=== PATIENT | female | born 1980 | race Caucasian/White ===

== ENCOUNTER → 2020-03-24 07:49 | Outpatient (CLI) | payer OTHER, SELFPAY ==
--- NOTE | ~2020-03-24 | MMUS_ITS ---
EXAMINATION: MM diagnostic mario BI w carlyn, US breast LT limited HISTORY: Palpable left breast lump TECHNIQUE: Additional 3-D tomosynthesis images of the left breast were performed and synthetic 2-D im ages were generated. CAD analysis was submitted and interpreted. High resolution left breast ultrasou nd was performed. COMPARISON: None BREAST PARENCHYMAL COMPOSITION: The breasts are heterogeneously dense, which may obscure small masses . FINDINGS: MAMMOGRAPHIC FINDINGS: There are no suspicious masses, calcifications or architectural distortion in either breast to sugges t malignancy. ULTRASOUND: There is no evidence of focal abnormal solid or cystic lesion in the vicinity of the palpable left br east abnormality. IMPRESSION: 1. No mammographic or sonographic evidence for malignancy. 2. Routine yearly screening mammogram and regular clinical breast examination are recommended. BI-RADS Category 1: Negative Reviewed, dictated and finalized at location A. IMPRESSION: 1. No mammographic or sonographic evidence for malignancy. 2. Routine yearly screening mammogram and regular clinical breast examination a re recommended. BI-RADS Category 1: Negative
== END ==
DX: N63.20 Unspecified lump in the left breast, unspecified quadrant (principal)
CPT/HCPCS: 76642; 77062; 77066; G0279

== ENCOUNTER 2022-08-17 13:35 | Emergency (ER) | payer OTHER, SELFPAY ==
[2022-08-17 13:42] VITALS: BP 146/73; PULSE 72; RESP 16; TEMP 36.8; O2SAT 99
--- NOTE | 2022-08-17 13:43 | ED.URI ---
HPI - URI/Sore Throat General Chief Complaint: Upper Respiratory Infection Stated Complaint: sore throat Time Seen by Provider: 08/17/22 13:50 Source: patient, RN notes reviewed and old records reviewed Mode of arrival: ambulatory Limitations: no limitations History of Present Illness HPI Narrative: 42-year-old female presents to the [facility] with complaints of a sore throat since last night. Reports sinus drainage as well. Denies fevers. Has been as same symptoms. Related Data Home Medications Medication Instructions Recorded Confirmed folic acid 1 mg tablet 1 mg PO DAILY 08/17/22 08/17/22 hydroxychloroquine 200 mg tablet 200 mg PO DAILY 08/17/22 08/17/22 methotrexate sodium 2.5 mg tablet 12.5 mg PO WEEKLY 08/17/22 08/17/22 rosuvastatin 5 mg tablet 5 mg PO DAILY 08/17/22 08/17/22 Allergies Allergy/AdvReac Type Severity Reaction Status Date / Time No Known Allergies Allergy Verified 08/17/22 14:09 Review of Systems Review of Systems: All systems reviewed & are unremarkable except as noted in HPI and below Constitutional: Constitutional: Reports no additional constitutional complaints Eyes: Eyes: Reports no additional eye complaints ENT: Reports as per HPI and Reports sore throat Cardiovascular: Cardiovascular: Reports no additional cardiovascular complaints, Denies chest pain and Denies dyspnea Respiratory: Respiratory: Reports no additional respiratory complaints, Denies chest congestion, Denies cough and Denies dyspnea Gastrointestinal: Gastrointestinal: Reports no additional gastrointestinal complaints, Denies abdominal pain, Denies nausea and Denies vomiting Musculoskeletal: Musculoskeletal: Reports no additional musculoskeletal complaints Integumentary/Breasts: Skin/Breast: Reports system reviewed and no additional complaints, except as docu Neurologic: Reports system reviewed and no additional complaints, except as documented Psychiatric: Psychiatric: Reports no additional psychiatric complaints Allergic/Immunologic: Allergic/Immunologic: Reports no additional allergic/immunologic complaints PMFSH Comments At the time of my signature, I reviewed and agree with the nursing past medical, surgical, social, and family history. There is no relevant family history pertinent to the patient complaint. Exam Const: General: cooperative, healthy appearing, comfortable, no acute distress, well developed, alert and well nourished Nutritional Appearance: well nourished Orientation/consciousness: patient oriented x3 Limitations: no limitations HENMT: Head: normal to inspection Ears: hearing grossly normal bilaterally and external ears normal Face/Nose/Sinus: Normal external nose present, Normal nares present, Normal nasal mucous membranes and turbinates present and normal facial exam Face and sinus: normal facial exam Mouth: Yes Normal oral and palatal mucosa present, Yes lip normal and Yes moist mucous membranes Throat: posterior oropharynx normal, tonsils normal, uvula midline and postnasal drainage Eyes: General: appearance normal, both eyes and all related structures Alignment and Position: alignment normal Periorbital: periorbital findings normal Conjunctivae: conjunctivae normal Pupils: Equal, round and reactive pupils present EOM: EOMs intact bilaterally Neck: Neck: normal visual inspection, full ROM, no lymphadenopathy and no meningeal signs Chest: Chest palpation & inspection: normal inspection of the chest Resp: Effort & Inspection: normal respiratory effort and able to speak in complete sentences Auscultation: clear to auscultation bilaterally, no crackles, no rales, no rhonchi and no wheezes Cardio: Rate: regular rate Rhythm: regular rhythm Back/Spine/Pelvis: Cervical Spine: cervical ROM normal Thoracic/Lumbar Spine: No thoracic spinal tenderness Skin: General skin exam: normal color and no rashes or lesions noted Lesions: no lesions Rashes: no rashes Wounds: no wounds Neuro: Gen
== END 2022-08-17 14:00 | disposition home or self-care (01) ==
PROVIDERS: Emergency Provider Nurse Practitioner
DX: R09.82 Postnasal drip (principal); J06.9 Acute upper respiratory infection, unspecified; E78.00 Pure hypercholesterolemia, unspecified; I10 Essential (primary) hypertension; D86.9 Sarcoidosis, unspecified
CPT/HCPCS: 99211; G0463

== ENCOUNTER 2023-07-21 12:22 | Emergency (ER) | payer OTHER, SELFPAY ==
[2023-07-21 12:35] VITALS: BP 132/70; PULSE 70; RESP 16; TEMP 36.9; O2SAT 100
--- NOTE | 2023-07-21 12:48 | ED.FEMALEGU ---
HPI - Female Genitourinary General Chief complaint: Urogenital-Female Stated complaint: UTI Time Seen by Provider: 07/21/23 12:45 Source: patient and RN notes reviewed Mode of arrival: ambulatory Limitations: no limitations History of Present Illness HPI Narrative: 43-year-old female presents with concern for urinary tract infection. She reports symptoms started last night when she was not feeling well, this morning she had pain with urination is having pain on her right side with nausea. She took azo at 8:00 a.m. this morning. MD elicited complaint: UTI Related Data Home Medications Medication Instructions Recorded Confirmed folic acid 1 mg tablet 1 mg PO DAILY 08/17/22 07/21/23 hydroxychloroquine 200 mg tablet 200 mg PO DAILY 08/17/22 07/21/23 methotrexate sodium 2.5 mg tablet 12.5 mg PO WEEKLY 08/17/22 07/21/23 rosuvastatin 5 mg tablet 5 mg PO DAILY 08/17/22 07/21/23 cholecalciferol (vitamin D3) 10 10 mcg PO DAILY 07/21/23 07/21/23 mcg (400 unit) tablet Allergies Allergy/AdvReac Type Severity Reaction Status Date / Time No Known Allergies Allergy Verified 07/21/23 12:37 Review of Systems Review of Systems: CONSTITUTIONAL: Denies malaise, chills, sweats, or fever. CARDIOVASCULAR: Denies chest pain, palpitations, or edema. RESPIRATORY: Denies cough or dyspnea. GASTROINTESTINAL: Denies abdominal pain, vomiting, diarrhea. Reports nausea GENITOURINARY: Reports dysuria, frequency, urgency, right flank pain SKIN: Denies rash or itching. MUSCULOSKELETAL: Denies back pain or myalgia. All systems reviewed & are unremarkable except as noted in HPI and below PMFSH Comments At time of signature, agree with nursing past medical, surgical, social and family history. There is no relevant family history pertinent to the presenting complaint Exam Narrative: GENERAL: Well-appearing, well-nourished, and in no acute distress. HEAD: Normocephalic. EYES: PERRLA, conjunctivae clear. NECK: Supple. No lymphadenopathy CHEST: Clear to auscultation. No respiratory distress. HEART: Regular rate and rhythm. ABDOMEN: Soft, nontender upon palpation, nondistended, normal active bowel sounds, no palpable or pulsatile masses, no guarding. No CVA tenderness SKIN: Warm, dry, no rash. NEURO: Alert and oriented x3. PSYCH: Normal mood and affect Course Course Emergency Course: Patient is aware of diagnosis, understands and agrees to treatment plan. Anticipatory guidance given. Patient agrees to follow-up as directed and is aware of reasons to seek care at the emergency department. Portions of this record may have been created with voice recognition software Level of Care: Express Care Visit Vital Signs Vital signs: Vital Signs Temperature 98.5 F 07/21/23 12:35 Pulse Rate 70 07/21/23 12:35 Respiratory Rate 16 07/21/23 12:35 Blood Pressure 132/70 07/21/23 12:35 Pulse Oximetry 100 07/21/23 12:35 Oxygen Delivery Room Air 07/21/23 12:35 Temperature 98.5 F 07/21/23 12:35 Pulse Rate 70 07/21/23 12:35 Respiratory Rate 16 07/21/23 12:35 Blood Pressure 132/70 07/21/23 12:35 Pulse Oximetry 100 07/21/23 12:35 Oxygen Delivery Room Air 07/21/23 12:35 Reviewed. MDM - Female Genitourinary MDM Narrative Medical decision making narrative: Exam findings and UA show no acute concerns or changes; patient is non-toxic appearing and is in no distress. Patient is appropriate for outpatient treatment and follow-up. Differential Diagnosis Differential diagnosis: Likely urinary tract infection and cystitis Lab Data Labs: Urine Glucose Trace Reference Range: Negative Urine Glucose Trace Reference Range: Negative Urine Bilirubin Negative Reference Range: Negative Urine Bilirubin
== END 2023-07-21 12:57 | disposition home or self-care (01) ==
PROVIDERS: Emergency Provider Nurse Practitioner; PCP Nurse Practitioner Family
DX: R30.0 Dysuria (principal); R11.0 Nausea; E78.00 Pure hypercholesterolemia, unspecified; I10 Essential (primary) hypertension; D86.9 Sarcoidosis, unspecified
CPT/HCPCS: 81003; 87077; 87086; 87186; 99213; G0463

== ENCOUNTER 2025-03-01 10:54 | Emergency (ER) | payer OTHER, SELFPAY ==
--- NOTE | 2025-03-01 11:00 | ED_ITS ---
HPI - Female Genitourinary General Chief complaint: Urogenital-Female Stated complaint: urinary irritation Time Seen by Provider: 03/01/25 10:56 Source: patient Mode of arrival: ambulatory Limitations: no limitations History of Present Illness HPI Narrative: Sharda is a 44-year-old female patient presenting to the clinic today with complaints of possible UTI. She reports yesterday she started having some right-sided back pain and foul-smelling cloudy urine. She reports she has push fluids and the urine has improved however now she is having some left lower quadrant/pelvis discomfort. Right-sided back pain has resolved. She denies any vaginal discharge or odor. No concerns for STIs. States she is perimenopausal. She is due for her menses 2 days ago but has yet to start. No history of ovarian cyst, diverticulitis, or diverticulosis. Colonoscopy completed last year and that was normal. Denies any burning or urgency with urination. Is having some frequency. Denies any nausea, vomiting, or diarrhea. No fevers or chills. Rates pain 4/10 currently. Related Data Home Medications ?Medication ?Instructions ?Recorded ?Confirmed ?Last Taken ?Type folic acid 1 mg tablet 1 mg PO DAILY 08/17/22 07/21/23 Unknown History hydroxychloroquine 200 mg tablet 200 mg PO DAILY 08/17/22 07/21/23 Unknown History methotrexate sodium 2.5 mg tablet 12.5 mg PO WEEKLY 08/17/22 07/21/23 Unknown History rosuvastatin 5 mg tablet 5 mg PO DAILY 08/17/22 07/21/23 Unknown History cholecalciferol (vitamin D3) 10 10 mcg PO DAILY 07/21/23 07/21/23 Unknown History mcg (400 unit) tablet Allergies Allergy/AdvReac Type Severity Reaction Status Date / Time No Known Allergies Allergy Verified 03/01/25 11:09 Review of Systems Review of Systems: Pertinent positives per HPI. Patient denies any fever, chills, rash, headache, visual changes, dizziness, cough, runny nose, sore throat, shortness of breath, chest pain, palpitations, nausea, vomiting, diarrhea, constipation. PMFSH Comments At the time of my signature, I reviewed and agree with the nursing past medical, surgical, social, and family history. There is no relevant family history pertinent to the patient complaint. Exam Narrative: General: Well-developed, well nourished, in no apparent distress Head: Normocephalic, atraumatic. Cardio: Regular rate and rhythm, s1 and s2 normal, no murmur appreciated. Resp: Clear to auscultation bilaterally, no rhonchi, rales, wheezing or rubs. Abdomen: Soft, pliable, bowel sounds present in all quadrants, tender to palpation over the left lower quadrant/left adnexa, no organomegly, no CVAT tenderness. Musculoskeletal: No deformity, non-tender to palpation over cervical, thoracic, or lumbar spine, grossly normal range of motion, muscle strength strong and equal in BLE. SLT negative, patellar reflexes 2/4 bilaterally, negative foot tia p, normal gait and station Course Course Emergency Course: Portions of this record may have been created with voice recognition software. Level of Care: Express Care Visit Vital Signs Vital signs: Vital Signs Temperature 36.5 C 03/01/25 11:02 Pulse Rate 70 03/01/25 11:02 Respiratory Rate 14 03/01/25 11:02 Blood Pressure 140/83 03/01/25 11:02 Pulse Oximetry 100 03/01/25 11:02 Oxygen Delivery Room Air 03/01/25 11:02 Temperature 36.5 C 03/01/25 11:02 Pulse Rate 70 03/01/25 11:02 Respiratory Rate 14 03/01/25 11:02 Blood Pressure 140/83 03/01/25 11:02 Pulse Oximetry 100 03/01/25 11:02 Oxygen Delivery Room Air 03/01/25 11:02 Vital signs reviewed MDM - Female Genitourinary MDM Narrative Medical decision making narrative: At the time of visit patient is resting comfortably on the exam table. Patient appears to be nontoxic. Labs: Urinalysis positive for trace of leukocytes and trace of blood. We will send urine for culture, bedside test was negative. Plan: I suspect patient has probable UTI however cannot rule out ovarian cyst. Will place patient on Bactrim. Patient has taken Bactrim before with her medications without concern. Recommend going to the emergency room if her symptoms worsen to rule out ovarian cyst or follow-up with her primary care doctor if symptoms persist. Supportive measures were discussed with the patient and they voiced understanding discharge instructions and agrees to treatment plan. Return precautions reviewed Differential Diagnosis Differential diagnosis: Likely urinary tract infection, bacterial vaginosis, trichomoniasis, cervicitis, ovarian cyst, vaginitis, ruptured ovarian cyst, cystitis, dysmenorrhea and other (Diverticulitis, diverticulosis, colitis) Lab Data Labs: Lab Results 03/01/25 03/01/25 Range/Units 11:11 11:18 POC Urine Color Light/pale POC Urine Clarity Clear POC Urine pH 7.0 POC Ur Specif [place] 1.020 POC Urine Protein Negative (Negative) POC Ur Glucose (UA) Negative (Negative) POC Urine Ketones Negative (Negative) POC Urine Blood Trace (Negative) POC Urine Nitrite Negative (Negative) POC Urine Bilirubin Negative (Negative) POC Urine Urobilinogen 0.2 POC U Leukocyte Esteras Trace (Negative) POC Urine HCG, Qual Negative (Negative) Discharge Plan Discharge Clinical Impression: Left lower quadrant abdominal pain UTI (urinary tract infection) Qualifiers: Urinary tract infection type: acute cystitis Hematuria presence: with hematuria Qualified Code(s): N30.01 - Acute cystitis with hematuria Patient Disposition: Home Condition: Stable Instructions: Antibiotic Form, Ovarian Cyst (ED), Urinary Tract Infection in Women (ED) Additional Instructions: Cannot rule out ovarian cyst in the clinic today. Recommend if your symptoms worsen to go to the emergency room. If symptoms persist follow-up with your primary care doctor or tax services specialist Urinalysis positive for leukocytes and blood. We will send urine for culture Take Bactrim ds as prescribed Increase fluids and stay well hydrated Wipe front to back. May use wet wipes. Avoid tub baths If sexually active- pee before and after intercourse. Wear cotton panties Avoid tight clothing up against the genitals Follow up with your PCP in 1 week if symptoms persist. Patient Language: Polish Prescriptions: New sulfamethoxazole-trimethoprim [Bactrim DS] 800-160 mg tablet 1 tablet PO Q12H 5 Days Qty: 10 0RF No Action methotrexate sodium 2.5 mg tablet 12.5 mg PO WEEKLY folic acid 1 mg tablet 1 mg PO DAILY hydroxychloroquine 200 mg tablet 200 mg PO DAILY rosuvastatin 5 mg tablet 5 mg PO DAILY cholecalciferol (vitamin D3) 10 mcg (400 unit) Tablet 10 mcg PO DAILY cephalexin 500 mg capsule 500 mg PO QID 10 Days Qty: 40 0RF sulfamethoxazole-trimethoprim [Bactrim DS] 800-160 mg tablet 1 tablet PO Q12H Qty: 14 0RF Follow-up/Referrals: Nia,JIHAN Cobb [Primary Care Provider] - Time of Disposition: 11:19 Quality NIHSS Nursing Documentation ED NIHSS nursing documentation: reviewed/agree
[2025-03-01 11:02] VITALS: BP 140/83; PULSE 70; RESP 14; TEMP 36.5; O2SAT 100
[2025-03-01 11:13] LABS: EDUAAPPEAR Clear; EDUABILI Negative (Negative); EDUABLOOD Trace (Negative); EDUACOLOR1 Light/Pale; EDUAGLUCOSE Negative (Negative); EDUAKETONE Negative (Negative); EDUALEUKO Trace (Negative); EDUANITRATE Negative (Negative); EDUAPROTEIN Negative (Negative); EDUAUROBILI 0.2
[2025-03-01 11:19] LABS: BEDSIDEPREGUCG Negative (Negative)
== END 2025-03-01 11:25 | disposition home or self-care (01) ==
PROVIDERS: Emergency Provider Nurse Practitioner Family; PCP Nurse Practitioner Family
DX: N30.01 Acute cystitis with hematuria (principal)
CPT/HCPCS: 81003; 81025; 87086; 99213; G0463